=== PATIENT | male | born 1995 | race Caucasian/White ===

== ENCOUNTER 2017-09-20 10:43 | Emergency (ER) | payer OTHER ==
--- NOTE | 2017-09-20 11:15 | UC ---
Hand/Wrist HPI - HPI Summary HPI Summary: Pt presents with pain to his left 3rd MCP. He is right hand dominant. He tells me that about 3 weeks ago he was playing lacrosse and was hit in the hand by an opponent. He was wearing his gloves, but had immediate pain. Ever since that time has been intermittently painful, especially when trying to make a fist. Denies numbness or tingling. - History Of Current Complaint Stated Complaint: LEFT HAND COMPLAINT Time Seen by Provider: 09/20/17 11:15 Hx Obtained From: Patient Onset/Duration: Sudden Onset Severity Initially: Moderate Severity Currently: Mild Pain Intensity: 2 Pain Scale Used: 0-10 Numeric Character Of Pain: Aching Aggravating Factor(s): Movement Alleviating Factor(s): Rest, Ice - Allergies/Home Medications Allergies/Adverse Reactions: Allergies Allergy/AdvReac Type Severity Reaction Status Date / Time No Known Allergies Allergy Verified 09/20/17 11:30 Home Medications: Home Medications NK [No Home Medications Reported] 09/20/17 [History Confirmed 09/20/17] PMH/Surg Hx/FS Hx/Imm Hx Previously Healthy: Yes - Surgical History Surgical History: None - Family History Known Family History: Positive: Unknown - Social History Occupation: Student Lives: Dormitory/Roommates Alcohol Use: Occasionally Substance Use Type: None Smoking Status (MU): Never Smoked Tobacco Review of Systems Constitutional: Negative Skin: Negative Respiratory: Negative Cardiovascular: Negative Neurovascular: Negative Musculoskeletal: Other: - Pain left 3rd MCP Neurological: Negative Psychological: Negative All Other Systems Reviewed And Are Negative: Yes Physical Exam - Summary Physical Exam Summary: GENERAL: NAD. WDWN. No pain distress. SKIN: No rashes, sores, ulcers, masses, lesions. NECK: Supple. Nontender. No lymphadenopathy. CHEST: CTAB. No r/r/w. No accessory muscle use. Breathing comfortably and in no distress. CV: RRR. Without m/r/g. Pulses intact radial and ulnar. MSK: Mild TTP over 3rd MCP. Mild overlying ecchymosis. FROM. Strength 5/5 including criminal profiler strength. No edema or obvious bony deformities. No snuffbox tenderness. NEURO: Alert. Sensations intact hand and all fingers. PSYCH: Age appropriate behavior. Triage Information Reviewed: Yes Hand/Wrist Course/Dx - Course Course Of Treatment: XR: IMPRESSION: No fracture of the left hand is noted. Suspect contusion. Advised to f/u with Ortho if symptoms persist. - Differential Dx/Diagnosis Provider Diagnoses: Left hand contusion Discharge - Sign-Out/Discharge Documenting (check all that apply): Discharge - Discharge Plan Condition: Stable Disposition: HOME Patient Education Materials: Contusion in Adults (ED) Referrals: Non Staff,Doctor [Primary Care Provider] - Arlette El MD [Medical Doctor] - If Needed Additional Instructions: If you develop a fever, shortness of breath, chest pain, new or worsening symptoms - please call your PCP or go to the ED. 1) If your symptoms worsen or persist - please call Orthopedics at the number below to schedule a follow up appointment. - Billing Disposition and Condition Condition: STABLE Disposition: HOME
[2017-09-20 11:30] VITALS: BP 130/84
--- NOTE | 2017-09-20 11:53 | RAD ---
Indication: Left hand pain. 4 views of left hand demonstrates no fracture. No other bone or joint abnormality is identified. IMPRESSION: No fracture of the left hand is noted.
== END 2017-09-20 12:09 | disposition home or self-care (01) ==
LOC: UCCORT 10:43
DX: S60.222A Contusion of left hand, initial encounter (principal); W50.0XXA Accidental hit or strike by another person, initial encounter; Y93.65 Activity, lacrosse and field hockey; Y92.9 Unspecified place or not applicable
CPT/HCPCS: 99201; G0463

== ENCOUNTER 2019-02-18 10:04 | Emergency (ER) | payer OTHER ==
[2019-02-18 10:49] VITALS: BP 148/97
[2019-02-18] MEDS ORDERED: Acetaminophen TAB* 325 MG PO ONE (10:55)
[2019-02-18] MEDS ORDERED: Ibuprofen ADULT LIQ* 600 MG/30 ML UDC PO ONE (10:55)
--- NOTE | 2019-02-18 11:05 | UC ---
UC General HPI - HPI Summary HPI Summary: pt is c/o a 2 1/2 day hx headache, bodyaches, scratchy throat "like it is dry", cough, congestion. he admits to some sob and wheezing. + sweating. tx with Ibuprofen, LD 7 hours ago. - abdominal pain, vomiting, diarrhea. + nausea but none now. - History of Current Complaint Chief Complaint: UCGeneralIllness Stated Complaint: HEADACHE ACHY SORE THROAT Time Seen by Provider: 02/18/19 10:49 Hx Obtained From: Patient Onset/Duration: Gradual Onset Timing: Constant Pain Intensity: 6 - Allergy/Home Medications Allergies/Adverse Reactions: Allergies Allergy/AdvReac Type Severity Reaction Status Date / Time No Known Allergies Allergy Verified 02/18/19 10:49 Home Medications: Home Medications Ibuprofen TAB* [Advil TAB*] 600 mg PO Q6H PRN 02/18/19 [History Confirmed ] PMH/Surg Hx/FS Hx/Imm Hx Previously Healthy: Yes - Surgical History Surgical History: Yes Surgery Procedure, Year, and Place: L shoulder, R knee - Family History Known Family History: Positive: Unknown - Social History Occupation: Student Lives: Dormitory/Roommates Alcohol Use: Occasionally Substance Use Type: None Smoking Status (MU): Never Smoked Tobacco Review of Systems All Other Systems Reviewed And Are Negative: No Constitutional: Positive: Chills Skin: Negative: Rash Eyes: Negative: Eye Redness ENT: Positive: Ear Ache Cardiovascular: Negative: Palpitations, Chest Pain Gastrointestinal: Positive: Nausea. Negative: Abdominal Pain Genitourinary: Negative: Dysuria, Hematuria, Frequency, Urgency Musculoskeletal: Negative: Arthralgia Physical Exam Triage Information Reviewed: Yes Appearance: Ill-Appearing - but non toxic. Vital Signs: Initial Vital Signs Temp 98.8 F 02/18/19 10:44 Pulse 107 02/18/19 10:44 Resp 16 02/18/19 10:44 BP 148/97 02/18/19 10:44 Pulse Ox 100 02/18/19 10:44 Vital Signs Reviewed: Yes Eyes: Positive: Conjunctiva Clear ENT: Positive: Pharynx normal, TMs normal. Negative: Nasal congestion, Nasal drainage Neck: Positive: Supple, Nontender, No Lymphadenopathy Respiratory: Positive: Lungs clear, No respiratory distress, Decreased breath sounds - slight. Negative: Crackles, Rhonchi, Wheezing Cardiovascular: Positive: RRR, No Murmur. Negative: Tachycardia Abdomen Description: Positive: Nontender, No Organomegaly, Soft Bowel Sounds: Positive: Present Musculoskeletal: Positive: ROM Intact Neurological: Positive: Alert Psychological: Positive: Age Appropriate Behavior Skin Exam: Other - Flushed and moist. Diagnostics - Laboratory Lab Results: RAPID FLU=NEGATIVE - Radiology No standard instances Radiology Interpretation Completed By: Radiologist - IMPRESSION: NO ACTIVE CARDIOPULMONARY DISEASE. Re-Evaluation - Re-Evaluation First Eval Re-Evaluation Time: 11:20 Comment: RESTING COMFORTABLY. RESULTS OF WORKUP D/W PT. HE IS COMFORTABLE WITH THE PLAN. Course/Dx - Differential Dx - Multi-Symptom Differential Diagnoses: Other - non toxic. not hypoxic. cxr=nad. rapid flu=neg. antibiotic not indicated. - Diagnoses Provider Diagnosis: Influenza-like illness Discharge ED - Sign-Out/Discharge Documenting (check all that apply): Patient Departure All imaging exams completed and their final reports reviewed: Yes - Discharge Plan Condition: Stable Disposition: HOME Prescriptions: Albuterol HFA INHALER* [Ventolin HFA Inhaler*] 2 puff INH Q6H PRN #1 mdi PRN Reason: Cough Patient Education Materials: Viral Syndrome (ED) Forms: *School Release Referrals: [facility] [Outside] - 3 Days Additional Instructions: FOLLOW UP IN 3 DAYS FOR A RECHECK OR SOONER IF WORSE. - Billing Disposition and Condition Condition: STABLE Disposition: Home
[2019-02-18 11:15] LABS: Influenza A Molecular NEGATIVE (Negative); Influenza B Molecular NEGATIVE (Negative)
== END 2019-02-18 11:31 | disposition home or self-care (01) ==
LOC: UCCORT 10:04
DX: R51 Headache (principal); R52 Pain, unspecified; R09.89 Other specified symptoms and signs involving the circulatory and respiratory systems; R05 Cough; R09.81 Nasal congestion
CPT/HCPCS: 71046; 99212; A9270-GY; G0463